=== PATIENT | female | born 1965 | race Caucasian/White ===

== ENCOUNTER → 2017-05-12 | Outpatient (CLI) | payer OTHER | LOC: FIMAGING 10:47 | PROVIDERS: ATTEND Registered Nurse | DX: Z12.31 Encounter for screening mammogram for malignant neoplasm of breast (principal) | CPT/HCPCS: G0202 ==

== ENCOUNTER 2017-07-18 06:58 | Day surgery (SDC) | payer OTHER ==
[2017-07-18] MEDS ORDERED: LR 1,000 ML IV ONE (08:10)
[2017-07-18] MEDS ORDERED: LIDOCAINE 1% 2 ML INJ ID PRN (08:10)
--- NOTE | 2017-07-18 08:16 | PDANEPAE ---
ANE History of Present Illness Screening colonoscopy ANE Past Medical History - Endocrine History Hx Diabetes: No ANE Review of Systems Review of Systems: - Exercise capacity METS (RN): 4 METS ANE Patient History - Allergies Allergies/Adverse Reactions: No Known Allergies Allergy (Unverified 04/02/14 07:41) - Home Medications Home medications: home medication list seen and reviewed Home Medications: Belviq 04/02/14 [Last Taken 07/17/17] Metformin HCl 04/02/14 [Last Taken 07/17/17] - Smoking Hx Smoking Status: Never smoked ANE Labs/Vital Signs - Vital Signs Height: 161.29 cm Weight: 107.048 kg ANE Physical Exam - Airway Neck exam: FROM Mallampati Score: Class 1 Mouth exam: normal dental/mouth exam - Pulmonary Pulmonary: no respiratory distress - Cardiovascular Cardiovascular: regular rate and rhythym - ASA Status ASA Status: I ANE Anesthesia Plan Anesthesia Plan: MAC
[2017-07-18] MEDS ORDERED: PROPOFOL/EMULSION 500 MG/50 ML BOTTLE IV ONE (08:25)
[2017-07-18] MEDS ORDERED: fentaNYL 100 MCG/2 ML INJ IVP PRN (08:25)
[2017-07-18] MEDS ORDERED: NALOXONE HCL 0.4 MG/ML INJ IVP PRN (08:25)
[2017-07-18] MEDS ORDERED: LIDOCAINE 2% 5 ML SDV ONE (08:25)
[2017-07-18] MEDS ORDERED: ONDANSETRON 4 MG/2 ML VIAL IVP PRN (08:25)
[2017-07-18] MEDS ORDERED: INDOMETHACIN 50 MG SUPP PR PRN (08:32)
--- NOTE | 2017-07-18 08:32 | PDGENHP ---
History & Physical Chief Complaint: hx polyps History of Present Illness: 52 year old female presents for screening. Pertinent Past, Social, Family History: SoHx: social. pMHx: None. ASA 1 Relevant Physical Exam: HEENT: anicteric. CV: RRR + s1s2. Lungs; CTAB. Abd: soft, nt. + bs Cardiorespiratory Assessment: ASA 1
[2017-07-18] MEDS ORDERED: NS 500 ML IV SCH (08:45)
[2017-07-18] MEDS ORDERED: PETROLAT,WHT/MIN OIL/SOD CHL 3.5 GM OPHT.OINT ONE (08:53)
--- NOTE | 2017-07-18 09:00 | POSTANESTH ---
Post Anesthetic Evaluation Cardiovascular Status: Normal, Stable Respiratory Status: Normal, Stable Level of Consciousness/Mental Status: Can Participate in Eval Pain Control: Adequate, Prn Tx Ordered Nausea/Vomiting Control: Adequate, Prn Tx Ordered Complications Possibly Related to Anesthesia: None Noted
--- NOTE | 2017-07-18 09:03 | POSTOPPROG ---
Post Op Note Date of Operation: 07/18/17 Surgeon: Sam Nye Anesthesia: IV Sedation Pre-op Diagnosis: screening Post-op Diagnosis: + polyps, diverticulosis Indication: screening. famhx polyps Procedure: colonoscopy Findings: ac and tc polyp, diverticulosis Inf/Abcess present in the surg proc area at time of surgery?: No EBL: Minimal
[2017-07-18 09:15] VITALS: TEMP 98.2
[2017-07-18 09:24] VITALS: O2SAT 95
--- NOTE | 2017-07-18 09:27 | GPN ---
[f rep st] PROCEDURE NOTE DATE OF PROCEDURE: 07/18/2017 PROCEDURE: Colonoscopy with snare polypectomy. INDICATION: The patient is a 52-year-old female who presents for screening colonoscopy. CONSENT: Risks, benefits, and alternatives of the procedure were discussed in great detail with the patient. Risks of infection, bleeding, perforation, and sedation were discussed. All questions answered. Informed consent was obtained. MEDICATIONS: Propofol. Please see Anesthesia for details. ESTIMATED BLOOD LOSS: Insignificant. COLONOSCOPIC EVALUATION: A rectal exam was done and no palpable mass was felt. The Olympus colonoscope was introduced into the rectum and advanced to the cecum, where the ileocecal valve and appendiceal orifice was seen. The quality of prep was good. The colonic mucosa was carefully examined on both insertion and withdrawal of the scope. Diverticulosis was noted to the sigmoid colon to the ascending colon. An 8 mm sessile polyp was seen in the ascending colon and was removed by hot snare polypectomy. A 6 mm sessile polyp was seen in the transverse colon and was removed by hot snare polypectomy. IMPRESSION: 1. Colonic polyps x2. 2. Diverticulosis. RECOMMENDATION: 1. Follow up on biopsy results. 2. Fiber supplementation. 3. Repeat colonoscopy in 5 years. /[id number]/MODL MTDD
[2017-07-18 11:13] VITALS: BP 126/90; PULSE 78; RESP 15
== END 2017-07-18 09:55 | disposition home or self-care (01) ==
LOC: FSGY 06:58
PROVIDERS: ATTEND Internal Medicine Gastroenterology
PROC: 0DBL8ZX Excision of Transverse Colon, Via Natural or Artificial Opening Endoscopic, Diagnostic (ICD-10-PCS; principal; 2017-07-18 08:15)
PROC: 0DBK8ZX Excision of Ascending Colon, Via Natural or Artificial Opening Endoscopic, Diagnostic (ICD-10-PCS; principal; 2017-07-18 08:15)
DX: D12.2 Benign neoplasm of ascending colon (principal); D12.3 Benign neoplasm of transverse colon; K57.30 Diverticulosis of large intestine without perforation or abscess without bleeding; Z12.11 Encounter for screening for malignant neoplasm of colon; Z83.71 Family history of colonic polyps
CPT/HCPCS: J2704

== ENCOUNTER → 2018-05-14 | Outpatient (CLI) | payer OTHER | LOC: FIMAGING 08:13 | PROVIDERS: ATTEND Family Medicine | DX: Z12.31 Encounter for screening mammogram for malignant neoplasm of breast (principal) ==